=== PATIENT | male | born 1985 | race African-American/Black ===

== ENCOUNTER 2025-08-11 11:16 | Emergency (ER) | payer OTHER, SELFPAY ==
--- NOTE | 2025-08-11 11:23 | ED_ITS ---
HPI - General Adult General Chief complaint: Extremity Injury, Upper Stated complaint: Swollen Right Index Finger Time Seen by Provider: 08/11/25 11:26 Source: patient, RN notes reviewed and old records reviewed Mode of arrival: ambulatory Limitations: no limitations History of Present Illness HPI narrative: 40-year-old male presents to the [facility] with a swollen right index finger around the nail bed. States that started . Onset (ago): day(s) (4) Related Data Allergies Allergy/AdvReac Type Severity Reaction Status Date / Time No Known Allergies Allergy Verified 08/11/25 11:25 Review of Systems Review of Systems: All systems reviewed & are unremarkable except as noted in HPI and below Constitutional: Constitutional: Reports no additional constitutional complaints Musculoskeletal: Musculoskeletal: Reports no additional musculoskeletal complaints Integumentary/Breasts: Skin/Breast: Reports as per HPI PMFSH Comments At the time of my signature, I reviewed and agree with the nursing past medical, surgical, social, and family history. There is no relevant family history pertinent to the patient complaint. Exam Const: General: cooperative, healthy appearing, comfortable, no acute distress, well developed, alert and well nourished Nutritional Appearance: well nourished Orientation/consciousness: patient oriented x3 Limitations: no limitations HENMT: Head: normal to inspection Eyes: General: appearance normal, both eyes and all related structures Alignment and Position: alignment normal Neck: Neck: normal visual inspection, full ROM, no lymphadenopathy and no meningeal signs Chest: Chest palpation & inspection: normal inspection of the chest Resp: Effort & Inspection: normal respiratory effort and able to speak in complete sentences Cardio: Rate: regular rate Skin: General skin exam: normal color and no rashes or lesions noted Other: Right index finger, paronychia, mild redness, fluctuance center Neuro: General: patient oriented x3, gait normal, moves all extremities and no meningeal signs Cognition (Neuro): normal cognition Speech: normal speech Gait exam (Neuro): Normal gait present Extrem: General: normal to inspection, full ROM, capillary refill normal and normal gait Psych: Appearance: grossly normal and well kempt Mental Status: mental status grossly normal Speech and movement: Normal speech and movement present and Clear speech present Affect: normal affect Attitude: cooperative Course Course Emergency Course: Patient soaked for 15 minutes with warm soapy water, used 18 gauge needle, scraped away cuticle, area drained. Patient tolerated well. Culture collected and sent to lab Level of Care: Express Care Visit Vital Signs Vital signs: Vital Signs Temperature 97.5 F L 08/11/25 11:26 Pulse Rate 96 08/11/25 11:26 Respiratory Rate 18 08/11/25 11:26 Blood Pressure 145/88 H 08/11/25 11:26 Pulse Oximetry 97 08/11/25 11:26 Oxygen Delivery Room Air 08/11/25 11:26 Temperature 97.5 F L 08/11/25 11:26 Pulse Rate 96 08/11/25 11:26 Respiratory Rate 18 08/11/25 11:26 Blood Pressure 145/88 H 08/11/25 11:26 Pulse Oximetry 97 08/11/25 11:26 Oxygen Delivery Room Air 08/11/25 11:26 Reviewed Procedures Abscess I/D hand: Date of Incision: 08/11/25 Time of Incision: 11:45 Side (if applicable): right Medical Decision Making MDM Narrative Medical decision making narrative: Patient sitting comfortably in exam room. Patient is nontoxic, vitals stable. Patient presents with a paronychia to the right index finger area opened and drained. Placed on antibiotics. Patient is appropriate for outpatient treatment with close follow-up Discharge instructions reviewed with patient, as well as provided in writing per nursing staff. The instructions also include specific and strict return/GO TO THE ER as well as f/u information. All questions have been answered, and the patient deny any further questions with discharge and discharge plan. Some parts of this dictation were generated by voice recognition software and may contain typographical and/or grammatical inaccuracies. Differential Diagnosis Differential Diagnosis: Abscess, paronychia Medical Records Medical records reviewed: Yes I reviewed the external patient's medical records. Vital Signs Vital Signs: Vital Signs Temperature 97.5 F L 08/11/25 11:26 Pulse Rate 96 08/11/25 11:26 Respiratory Rate 18 08/11/25 11:26 Blood Pressure 145/88 H 08/11/25 11:26 Pulse Oximetry 97 08/11/25 11:26 Oxygen Delivery Room Air 08/11/25 11:26 Temperature 97.5 F L 08/11/25 11:26 Pulse Rate 96 08/11/25 11:26 Respiratory Rate 18 08/11/25 11:26 Blood Pressure 145/88 H 08/11/25 11:26 Pulse Oximetry 97 08/11/25 11:26 Oxygen Delivery Room Air 08/11/25 11:26 Reviewed Lab Data Lab results reviewed: Yes I reviewed the patient's lab results. Labs: Reviewed Critical Care Time Critical Care Time Critical Care Time: No Discharge Plan Discharge Clinical Impression: Paronychia Patient Disposition: Home Condition: Stable Instructions: Antibiotic Form, Paronychia (ED) Additional Instructions: Soak twice daily in warm soapy water with Epson salt. Use a antibacterial soap. Soak for 15-20 minutes each time. Do this for 7 days. Take antibiotic as prescribed Follow-up with primary care provider if no improvement in 5 days For new or worsening symptoms go directly to the emergency room Patient Language: Irish Prescriptions: New sulfamethoxazole-trimethoprim [Bactrim DS] 800-160 mg tablet 1 tablet PO Q12H Qty: 14 0RF Follow-up/Referrals: PHYSICIAN,ADMINISTRATION MANAGER [Primary Care Provider, Internal Medicine] Stand Alone Forms: Work/School Release IP Time of Disposition: 11:54
[2025-08-11 11:26] VITALS: BP 145/88; PULSE 96; RESP 18; TEMP 36.4; O2SAT 97
== END 2025-08-11 12:03 | disposition home or self-care (01) ==
PROVIDERS: Emergency Provider Nurse Practitioner
DX: L03.011 Cellulitis of right finger (principal)
CPT/HCPCS: 10060; 87070; 87075; 99213; G0463